=== PATIENT | male | born 1990 | race American Indian/Alaskan Native ===

== ENCOUNTER 2018-02-02 14:56 | Emergency (ER) | payer OTHER ==
[2018-02-02 14:56] VITALS: BMI 24.2
[2018-02-02 15:22] VITALS: BP 136/86; PULSE 76; RESP 18; TEMP 98.5; O2SAT 98
--- NOTE | 2018-02-02 16:09 | ED PDOC ---
HPI: Influenza Time Seen by Provider: 02/02/18 15:26 Chief Complaint: Cough, Cold, Congestion Chief Complaint (Provider): Cold, congestion History Per: Patient Exam Limitations: no limitations Onset/Duration Of Symptoms: Days (3x) Symptoms include: nasal congestion (dark green phlegm), other (chills, denies fevers) Additional complaint(s):: 27 year old male with a past medical history of asthma (hasn't used inhaler in 2x years) presents to the ED with complaints of nasal congestion that started 3x days ago. Patient reports also having the chills, but denies having fevers. Patient denies using cold medications. PMD: None provided Past Medical History Reviewed: Historical Data, Nursing Documentation, Vital Signs Vital Signs: Last Vital Signs Temp 98.5 F 02/02/18 15:21 Pulse 76 02/02/18 15:21 Resp 18 02/02/18 15:21 BP 136/86 02/02/18 15:21 Pulse Ox 98 02/02/18 15:21 - Medical History PMH: Asthma Denies: Depression, Chronic Kidney Disease - Surgical History Surgical History: Hernia Repair - Family History Family History: States: No Known Family Hx - Social History Current smoker - smoking cessation education provided: Yes Alcohol: None Drugs: Cannabis - Immunization History Hx Tetanus Toxoid Vaccination: No Hx Influenza Vaccination: No Hx Pneumococcal Vaccination: No - Home Medications Home Medications: Ambulatory Orders Medication Instructions Recorded Albuterol 0.083% [Albuterol 0.083% 1 vial IH TID PRN #1 packet 07/13/16 Inhal Phoebe (2.5 mg/3 ml) UD] Albuterol HFA [Ventolin HFA 90 2 puff IH [id number] PRN #1 inhaler 07/13/16 mcg/actuation (8 g)] Nebulizer [Compact Compressor 1 dev XX PRN PRN #1 dev 07/13/16 Nebulizer] Albuterol HFA [Ventolin HFA 90 2 puff IH [id number] #1 puff 06/03/17 mcg/actuation (8 g)] Azithromycin [Zithromax] 250 mg PO DAILY #4 tab 06/03/17 Naproxen [Naprosyn] 500 mg PO BID PRN #16 tab 06/03/17 - Allergies Allergies/Adverse Reactions: Allergies Allergy/AdvReac Type Severity Reaction Status Date / Time BANANAS Allergy SWELLING Uncoded 02/02/18 15:22 FRUITS Allergy SWELLING Uncoded 02/02/18 15:22 Review of Systems ROS Statement: Except As Marked, All Systems Reviewed And Found Negative Constitutional: Positive for: Chills. Negative for: Fever ENT: Positive for: Nose Discharge (dark green), Nose Congestion Physical Exam - Reviewed Nursing Documentation Reviewed: Yes Vital Signs Reviewed: Yes - Physical Exam Appears: Positive for: Well, Non-toxic, No Acute Distress Head Exam: Positive for: ATRAUMATIC, NORMOCEPHALIC Skin: Positive for: Normal Color, Warm, Dry ENT: Positive for: Normal ENT Inspection Cardiovascular/Chest: Positive for: Regular Rate, Rhythm Respiratory: Positive for: Normal Breath Sounds Neurologic/Psych: Positive for: Alert, Oriented (3x) Medical Decision Making Medical Decision Makin:26 Initial impression: 27 year old male with nasal congestion. ------ Scribe Attestation: Documented by Tracey Martinez, acting as a scribe for Magali Colunga PA-C. Provider Scribe Attestation: All medical record entries made by the Scribe were at my direction and personally dictated by me. I have reviewed the chart and agree that the record accurately reflects my personal performance of the history, physical exam, medical decision making, and the department course for this patient. I have also personally directed, reviewed, and agree with the discharge instructions and disposition. - ECG O2 Sat by Pulse Oximetry: 98 Disposition - Clinical Impression Clinical Impression: Sinusitis - Disposition Forms: [employer] (Czech)
--- NOTE | 2018-02-02 16:10 | ED PDOC ---
HPI: General Adult Time Seen by Provider: 02/02/18 15:26 Chief Complaint (Nursing): Cough, Cold, Congestion Chief Complaint (Provider): Sinus pressure with green drainage from nose Additional Complaint(s): 27 year old male with a past medical history of asthma (hasn't used inhaler in 2x years) presents to the ED with complaints of nasal congestion that started 3x days ago. Patient reports also having the chills, but denies having fevers. Patient denies using cold medications. PMD: None provided Past Medical History Reviewed: Historical Data, Nursing Documentation, Vital Signs Vital Signs: Last Vital Signs Temp 98.5 F 02/02/18 15:21 Pulse 76 02/02/18 15:21 Resp 18 02/02/18 15:21 BP 136/86 02/02/18 15:21 Pulse Ox 98 02/02/18 15:21 - Medical History PMH: Asthma Denies: Depression, Chronic Kidney Disease - Family History Family History: States: Unknown Family Hx - Living Arrangements Living Arrangements: With Family - Social History Current smoker - smoking cessation education provided: No - Immunization History Hx Tetanus Toxoid Vaccination: No Hx Influenza Vaccination: No Hx Pneumococcal Vaccination: No - Home Medications Home Medications: Ambulatory Orders Medication Instructions Recorded Albuterol 0.083% [Albuterol 0.083% 1 vial IH TID PRN #1 packet 07/13/16 Inhal Phoebe (2.5 mg/3 ml) UD] Albuterol HFA [Ventolin HFA 90 2 puff IH [id number] PRN #1 inhaler 07/13/16 mcg/actuation (8 g)] Nebulizer [Compact Compressor 1 dev XX PRN PRN #1 dev 07/13/16 Nebulizer] Albuterol HFA [Ventolin HFA 90 2 puff IH [id number] #1 puff 06/03/17 mcg/actuation (8 g)] Azithromycin [Zithromax] 250 mg PO DAILY #4 tab 06/03/17 Naproxen [Naprosyn] 500 mg PO BID PRN #16 tab 06/03/17 Amoxicillin/Clavulanate [Augmentin 1 tab PO BID #20 tab 02/02/18 875 MG-125 MG] Guaifen/Phenyleph/Acetaminophn 1 tab PO BID #14 tab 02/02/18 [Mucinex Fast-Max Cold & Sinus 325 mg-200 mg-5] - Allergies Allergies/Adverse Reactions: Allergies Allergy/AdvReac Type Severity Reaction Status Date / Time BANANAS Allergy SWELLING Uncoded 02/02/18 15:22 FRUITS Allergy SWELLING Uncoded 02/02/18 15:22 Review of Systems ROS Statement: Except As Marked, All Systems Reviewed And Found Negative Constitutional: Negative for: Fever, Chills ENT: Positive for: Nose Discharge, Nose Congestion. Negative for: Ear Pain, Ear Discharge Musculoskeletal: Negative for: Neck Pain, Shoulder Pain Physical Exam - Reviewed Nursing Documentation Reviewed: Yes Vital Signs Reviewed: Yes - Physical Exam Appears: Positive for: Well, Non-toxic, No Acute Distress Head Exam: Positive for: ATRAUMATIC, NORMAL INSPECTION, NORMOCEPHALIC Skin: Positive for: Normal Color, Warm, DRY Eye Exam: Positive for: Normal appearance ENT: Positive for: Normal ENT Inspection Neck: Positive for: Normal, Painless ROM Cardiovascular/Chest: Positive for: Regular Rate, Rhythm Respiratory: Positive for: Normal Breath Sounds. Negative for: Accessory Muscle Use, Respiratory Distress Back: Positive for: Normal Inspection Extremity: Positive for: Normal ROM Neurologic/Psych: Positive for: Alert, Oriented - ECG O2 Sat by Pulse Oximetry: 98 Medical Decision Making Medical Decision Making: Discussed mucinex for 3 days and antibiotics if symptoms persist. Disposition - Clinical Impression Clinical Impression: Sinusitis - Patient ED Disposition Is Patient to be Admitted: No Counseled Patient/Family Regarding: Diagnosis, Need For Followup, Rx Given - Disposition Disposition: Routine/Home Disposition Time: 17:03 Condition: GOOD Prescriptions: Amoxicillin/Clavulanate [Augmentin 875 MG-125 MG] 1 tab PO BID #20 tab Guaifen/Phenyleph/Acetaminophn [Mucinex Fast-Max Cold & Sinus 325 mg-200 mg-5] 1 tab PO BID #14 tab Instructions: Sinusitis, Adult (DC) Forms: [employer] ([place]i)
== END 2018-02-02 17:08 | disposition home or self-care (01) ==
LOC: H.ER 14:56
DX: J32.9 Chronic sinusitis, unspecified (principal); J45.909 Unspecified asthma, uncomplicated